=== PATIENT | female | born 1955 | race Two or more races ===

== ENCOUNTER 2016-08-12 12:48 | Emergency (ER) | payer MEDICARE, OTHER ==
[2016-08-12] MEDS ORDERED: IOPAMIDOL 300 (61%) 150 ML VIAL IV ONE (12:49)
[2016-08-12 14:23] LABS: ABSOLUTE NEUTROPHIL COUNT 3.3 K/mm3 (1.8-7.7); BASO % 0.5 % (0.2-1.0); EOS # 0.6 (0.0-0.5); EOS % 10.3 % (0.9-2.9); HEMATOCRIT 31.7 % (37.0-47.0); HEMOGLOBIN 10.4 gm/l (12.0-16.0); IMM NEUT% 0.2 % (0-1); LYMPH # 1.2 (1.0-4.8); LYMPH % 20.6 % (15-45); MEAN CELL VOLUME 105.7 fl (81.0-99.0); MEAN CORPUSCULAR HEMOGLOBIN 34.7 pg (27.0-31.0); MEAN CORPUSCULAR HGB CONC 32.8 g/dl (33.0-37.0); MEAN PLATELET VOLUME 10.9 fl (7.4-10.4); MONO # 0.6 (0.0-0.8); NEUT % 57.4 % (43-75); PLATELET COUNT 132 K/mm3 (130-400); RED CELL DISTRIBUTION WIDTH 13.2 % (11.5-14.5)
[2016-08-12 14:30] LABS: SPECIFIC GRAVITY 1.015 (1.001-1.030); URINE BILIRUBIN NEGATIVE (NEGATIVE); URINE BLOOD 4+ (NEGATIVE); URINE GLUCOSE (UA) 2+ (NEGATIVE); URINE LEUKOCYTE ESTERASE 2+ (NEGATIVE); URINE NITRITE NEGATIVE (NEGATIVE); URINE PROTEIN 3+ (NEGATIVE); URINE UROBILINOGEN NORMAL (0-1 mg/dl)
[2016-08-12 14:31] LABS: URINE APPEARANCE HAZY; URINE COLOR YELLOW
[2016-08-12 14:34] LABS: ALB/GLOB RATIO 0.8 (>1.0); ALBUMIN 3.7 gm/dL (3.5-5.7)
[2016-08-12 14:39] LABS: URINE BACTERIA PRESENT; URINE EPITHELIAL CELLS FEW /hpf; URINE RBC PACKED /hpf; URINE WBC PACKED /hpf
--- NOTE | 2016-08-12 16:16 | CT ---
ABD/PELVIS W/ CON COMPARISON: None. HISTORY: Lower abdominal pain. Technique: No oral contrast. The patient is having hemodialysis tomorrow. Intravenous injection 80 mL Isovue 300. Using a [employer] Aqu[employer] [address] scanner, images were obtained from the diaphragm to the floor the pelvis. An automated dose reduction technique was used to minimize patient radiation dose. Dose information: CTDIvol (mGy): 4.10 DLP(mGycm): 203.90 FINDINGS: Lung bases: Normal. Inferior mediastinum and heart: Normal. Liver: Normal. Gallbladder: Cholecystectomy. Bile ducts: Normal. Pancreas: Normal. Spleen: Normal. Adrenal glands: Normal. Kidneys: Normal enhancement. Ureters: Normal Urinary bladder: Normal. Uterus and adnexa: Normal. Blood vessels: Moderate atherosclerosis of the aorta and its branches in the abdomen and the pelvis. Lymph nodes: Normal Stomach: Normal Duodenum: Normal Small intestine: Normal Appendix: The appendix is not visible. Colon: . Ascites: Moderate amount of fluid throughout the abdomen and pelvis. Abdominal wall and supporting musculature: Normal Bones: No acute finding. Mild degenerative changes. IMPRESSION: 1. Moderate amount of ascitic fluid dispersed throughout the abdomen and pelvis. 2. Incidental findings include cholecystectomy and nonvisualization of the appendix. Report was sent to the emergency department electronic medical record system 08/12/2016 at 16:17
== END 2016-08-12 16:48 | disposition home or self-care (01) ==
LOC: ED 12:48
DX: N39.0 Urinary tract infection, site not specified (principal); R10.9 Unspecified abdominal pain; Z99.2 Dependence on renal dialysis